=== PATIENT | male | born 1980 | race Caucasian/White ===

== ENCOUNTER 2019-09-29 13:18 | Emergency (ER) | payer OTHER ==
[2019-09-29 17:28] VITALS: BP 140/80
--- NOTE | 2019-09-29 17:30 | UC ---
Respiratory Complaint HPI - HPI Summary HPI Summary: 39 year old male presents with complaints of a persistent dry, non-productive cough. States he developed flu-like symptoms on 09/13/2019 which lasted 5-6 days. All his symptoms have resolved except the cough. He did recently travel to and from [place] 09/21-09/27 but reports his symptoms were present before the travel and have remained unchanged. No known contact with persons isolated or diagnosed with COVID-19. Denies fever, chills, nasal congestion, ear pain, sore throat, chest pain, or shortness of breath. - History of Current Complaint Stated Complaint: DRY COUGH X 1 WEEK. Time Seen by Provider: 09/29/19 16:57 Hx Obtained From: Patient - Allergies/Home Medications Allergies/Adverse Reactions: Allergies Allergy/AdvReac Type Severity Reaction Status Date / Time No Known Allergies Allergy Verified 09/29/19 17:24 Home Medications: Home Medications Azithromyxin MARLYN (NF) [Z-Marlyn (Zithromax) 250 mg tabs #6] 2 tab PO .TODAY, THEN 1 DAILY #6 tab 09/29/19 [Rx] Benzonatate CAP* [Tessalon 100 MG CAP*] 100 mg PO TID PRN #21 cap 09/29/19 [Rx] PMH/Surg Hx/FS Hx/Imm Hx Previously Healthy: Yes - Denies significant PMH - Surgical History Surgical History: None - Family History Known Family History: Positive: Hypertension - Social History Occupation: Employed Full-time Lives: With Family Review of Systems All Other Systems Reviewed And Are Negative: Yes Constitutional: Negative: Fever, Chills, Fatigue Skin: Negative: Rash Eyes: Negative: Drainage, Eye Redness ENT: Negative: Sore Throat, Ear Ache, Nasal Discharge, Sinus Congestion, Sinus Pain/Tenderness Respiratory: Positive: Cough. Negative: Shortness Of Breath Cardiovascular: Negative: Palpitations, Chest Pain Gastrointestinal: Negative: Abdominal Pain, Vomiting, Diarrhea, Nausea Genitourinary: Positive: Negative Musculoskeletal: Positive: Negative Neurological/Mental Status: Positive: Negative Is Patient Immunocompromised?: No Physical Exam - Summary Physical Exam Summary: GENERAL APPEARANCE: Well developed, well nourished, alert and cooperative, and appears to be in no acute distress. EYES: Conjunctiva clear. No drainage. EARS: External auditory canals and tympanic membranes clear, hearing grossly intact. NOSE: No nasal discharge. THROAT: Pharynx normal No tonsilar inflammation, swelling, exudate, or lesions. Uvula midline. NECK: Neck supple, non-tender without lymphadenopathy. CARDIAC: Normal S1 and S2. No S3, S4 or murmurs. Rhythm is regular. There is no peripheral edema, cyanosis or pallor. Extremities are warm and well perfused. Capillary refill is less than 2 seconds. Peripheral pulses intact. LUNGS: Clear to auscultation without rales, rhonchi, wheezing or diminished breath sounds. Dry, non-productive cough. ABDOMEN: Positive bowel sounds. Soft, nondistended, nontender. No guarding or rebound. No masses or hepatosplenomegally. MUSKULOSKELETAL: ROM intact to all extremities. No joint erythema or tenderness. Normal muscular development. Normal gait. SKIN: Skin normal color, texture and turgor with no lesions or eruptions. Triage Information Reviewed: Yes Vital Signs Reviewed: Yes Respiratory Course/Dx - Course Course Of Treatment: 39 year old male presents with complaints of a persistent dry, non-productive cough. States he developed flu-like symptoms on 09/13/2019 which lasted 5-6 days. All his symptoms have resolved except the cough. He did recently travel to and from [place] 09/21-09/27 but reports his symptoms were present before the travel and have remained unchanged. No known contact with persons isolated or diagnosed with COVID-19. Denies fever, chills, nasal congestion, ear pain, sore throat, chest pain, or shortness of breath. Afebrile. Mildly hypertensive otherwise VSS. Patient's exam was overall unremarkable except for a dry, non- productive cough. Discussed with the patient that his symptoms were consistent with an acute bronchitis and considering the duration of his symptoms we will treat him with a course of azithromycin as well as symptomatic care including Tessalon Perles 1 capsule every 8 hours as needed for cough. He is to return here or follow up with his primary care provider in 7 days if symptoms do not improve. Anticipatory guidance and warning symptoms reviewed with patient. Verbalizes understanding and agrees with POC. - Differential Dx/Diagnosis Differential Diagnosis/HQI/PQRI: Bronchitis, Influenza, Lower Resp Infection, Other - COVID-19 Provider Diagnosis: Acute bronchitis Discharge ED - Sign-Out/Discharge Documenting (check all that apply): Patient Departure All imaging exams completed and their final reports reviewed: No Studies - Discharge Plan Condition: Stable Disposition: HOME Prescriptions: Azithromyxin MARLYN (NF) [Z-Marlyn (Zithromax) 250 mg tabs #6] 2 tab PO .TODAY, THEN 1 DAILY #6 tab Benzonatate CAP* [Tessalon 100 MG CAP*] 100 mg PO TID PRN #21 cap PRN Reason: Cough Patient Education Materials: Acute Bronchitis (ED) Referrals: No Primary Care Phys,NOPCP [Primary Care Provider] - [facility] [Outside] Additional Instructions: Your history and exam are consistent with acute bronchitis. Considering the duration of your symptoms we will treat you with an antibiotic for the infection. Start azithromycin 250 mg 2 tabs today then 1 tab a day for the next 4 days. Be aware that the cough with bronchitis may persist for 2-3 weeks even after treatment. Get plenty of rest. Drink plenty of fluids. Run a cool mist humidifer in your room at night. Take over the counter acetaminophen (Tylenol) or ibuprofen (Advil, Motrin) according to directions as needed for pain or fever. Take Tessalon Perles 1 cap every 8 hours as needed for cough. Return here or follow up with your primary care provider in 7 days if symptoms do not improve. Seek immediate medical attention in the emergency room if you have fever greater than 100.5 F despite taking acetaminophen or ibuprofen, have chest pain , difficulty breathing, or have any worsening of symptoms. - Billing Disposition and Condition Condition: STABLE Disposition: Home
== END 2019-09-29 17:32 | disposition home or self-care (01) ==
LOC: UCEAST 13:18
DX: J40 Bronchitis, not specified as acute or chronic (principal); J20.9 Acute bronchitis, unspecified; I10 Essential (primary) hypertension
CPT/HCPCS: 99202; G0463